=== PATIENT | female | born 2000 | race Caucasian/White ===

== ENCOUNTER 2021-05-30 15:33 | Emergency (ER) | payer OTHER, SELFPAY ==
[2021-05-30 15:39] VITALS: BP 126/90; PULSE 102; RESP 16; TEMP 36.7; O2SAT 100
--- NOTE | 2021-05-30 15:59 | ED.URI ---
HPI - URI/Sore Throat General Chief Complaint: Upper Respiratory Infection Stated Complaint: sore throat Source: patient and RN notes reviewed Mode of arrival: ambulatory History of Present Illness HPI Narrative: This is a 20-year-old female presented to urgent care with complaints of a sore throat and a cough with yellowish mucus that she has had for the last 3 days. She does note that she has a history of sinusitis. Patient has been taking ibuprofen and DayQuil for her symptoms with no relief. The patient denies SOB, CP, palpitation, extremity numbness, lightheadedness, dizziness, nasal congestion, sinus pains, or runny nose, constipation, diarrhea, chills, or fever. Related Data Home Medications Medication Instructions Recorded Confirmed bupropion HCl [Wellbutrin XL] 300 mg PO 05/30/21 divalproex PO 05/30/21 norethindrone-e.estradiol-iron tablet 05/30/21 [Aurovela Fe 1-20 (28)] Allergies Allergy/AdvReac Type Severity Reaction Status Date / Time lamotrigine Allergy Rash Verified 05/30/21 15:48 Review of Systems Review of Systems: A 14 organ system Review of Systems was performed and pertinent positives included in the HPI, otherwise remaining ROS is negative. Exam Narrative: GENERAL: This is a well-nourished, well-developed patient, in no apparent distress. HEAD: normocephalic, atraumatic. EYES: PERRL. Sclera clear/white. Vision is grossly intact. EARS: External ears normal, auditory canals clear and without drainage, TMs normal without perforation. Hearing grossly intact. NOSE: External nose normal with no obvious nasal discharge, nares without redness, no rhinorrhea. THROAT: Mucous membranes moist, posterior pharynx edema with erythematous in multiple ulcers. NECK: Neck supple, non-tender without lymphadenopathy, masses or thyromegaly. CARDIOVASCULAR: Regular rate and rhythm without murmurs, gallops, or rubs. RESPIRATORY: Clear to auscultation. Breath sounds equal bilaterally. No wheezes, rales, or rhonchi. GASTROINTESTINAL: Abdomen soft, non-tender, nondistended. Bowel sounds are active. No hepato-splenomegaly, or palpable masses. No guarding. SKIN: warm, intact with no suspicious lesions or rash, good texture and turgor. NEURO: awake, alert, and oriented to person, place and time. There were no obvious focal neurologic abnormalities. Steady gait EXTREMITIES: Normal range of motion. No edema. No calf tenderness. Negative Homans sign bilaterally. BACK: Nontender without deformity or crepitance. No flank tenderness. Course Course Emergency Course: Patient will be treated for symptoms along for pharyngitis strep was negative she will be given Augmentin XR twice daily x7 days and Magic wash Vital Signs Vital signs: Vital Signs Temperature 98.1 F 05/30/21 15:39 Pulse Rate 102 H 05/30/21 15:39 Respiratory Rate 16 05/30/21 15:39 Blood Pressure 126/90 05/30/21 15:39 Pulse Oximetry 100 05/30/21 15:39 Temperature 98.1 F 05/30/21 15:39 Pulse Rate 102 H 05/30/21 15:39 Respiratory Rate 16 05/30/21 15:39 Blood Pressure 126/90 05/30/21 15:39 Pulse Oximetry 100 05/30/21 15:39 MDM - URI/Sore Throat Differential Diagnosis Differential diagnosis: Likely upper respiratory infection, influenza, pharyngitis and other (Strep) Lab Data Attestation: I reviewed the patient's lab results. Labs: Strep Screen Presumptive Negative *(Reference Range: Negative)* Discharge Plan Discharge Clinical Impression: Pharyngitis Qualifiers: Pharyngitis/tonsillitis etiology: unspecified etiology Qualified Code(s): J02.9 - Acute pharyngitis, unspecified Patient Disposition: Home, Self-Care Condition: Stable Instructions: Antibiotic Form, Pharyngitis (ED) Additional Instructions: -Eat things that are easy to swallow, like tea or soup, or popsicles to suck on. -Oral rinses such as: Salt water gargles and/or may use topical anesthetic
== END 2021-05-30 16:02 | disposition home or self-care (01) ==
PROVIDERS: Emergency Provider Nurse Practitioner
DX: J02.9 Acute pharyngitis, unspecified (principal)
CPT/HCPCS: 87081; 87880; 99203; G0463

== ENCOUNTER 2021-08-07 10:47 | Emergency (ER) | payer OTHER, SELFPAY ==
[2021-08-07 11:14] VITALS: BP 109/61; PULSE 121; RESP 16; TEMP 37.7; O2SAT 100
--- NOTE | 2021-08-07 12:25 | ED.GENADULT ---
HPI - General Adult General Chief complaint: Urogenital-Female Stated complaint: Std Source: patient Mode of arrival: ambulatory Limitations: no limitations History of Present Illness HPI narrative: Patient presents requesting an STI evaluation. She indicates that 3 days ago she noticed some bumps to her labia. No hx of similar symptoms in past. No hx of STI in past. She has some chronic clear vaginal discharge, unchanged from chronic discharge. Denies any vaginal bleeding. No fever, chills, nausea, vomiting, abdominal pain. She is not sure when her last period was. She is compliant with OC. She is sexually active with men and women. She uses condoms some of the time. She does not believe any of her sex partners are symptomatic. No additional complaints or concerns. Related Data Home Medications Medication Instructions Recorded Confirmed bupropion HCl 300 mg PO DAILY 08/07/21 08/07/21 divalproex 1,000 mg PO DAILY 08/07/21 08/07/21 norethindrone-e.estradiol-iron 1 tablet PO DAILY 08/07/21 08/07/21 [Blisovi Fe 06/24 (28)] Allergies Allergy/AdvReac Type Severity Reaction Status Date / Time lamotrigine Allergy Rash Verified 08/07/21 11:17 Review of Systems Review of Systems: CONSTITUTIONAL: Denies fever, chills, or sweats. EYES: Denies visual changes, redness, or discharge. ENT: Denies rhinorrhea, congestion, sore throat, or otalgia. CARDIOVASCULAR: Denies chest pain, palpitations, or edema. RESPIRATORY: Denies cough or dyspnea. GASTROINTESTINAL: Denies abdominal pain, nausea, vomiting, or diarrhea. GENITOURINARY: Reports clear vaginal discharge, unchanged from chronic discharge. Denies dysuria or hematuria. SKIN: Reports bumps to labia. Denies rash or itching. MUSCULOSKELETAL: Denies back pain, joint pain, or myalgia. NEUROLOGIC: Denies headache, numbness, dizziness, or weakness. PSYCHIATRIC: Denies anxiety or depression. REPLACED BY [facility] Past Medical History Medical History (Updated 08/07/21 @ 13:29 by Rajan Haile, BOAZ, JASWANT) Bipolar 2 disorder Depression Surgical History Surgical History History of bunionectomy Family History Family History Mother Family history non-contributory Social History Social History Smoking status: Current every day smoker Alcohol intake: current Alcohol use details: social Substance use: current Substance use type: marijuana Living arrangements: with family Gender identity (if verbalized by the patient): Female Sexual Orientation (if Verbalized by the Patient): Bisexual Spiritual care concerns: No Exam Narrative: GENERAL: Well-appearing, well-nourished, and in no acute distress. HEAD: Normocephalic, atraumatic. EYES: PERRLA and EOMI. ENT: Nares clear, no rhinorrhea or epistaxis. Mucous membranes moist. Oropharynx without tonsillar hypertrophy exudate or other lesions. Bilateral TMs pearly jaeger nonbulging NECK: Supple. No adenopathy or masses. No carotid bruits or JVD CHEST: Clear to auscultation. No respiratory distress. No wheezes rales or rhonchi HEART: Regular rate and rhythm. No murmur heard. Normal peripheral pulses. ABDOMEN: Soft, nontender, nondistended, normal active bowel sounds. EXTREMITIES: Normal range of motion. No edema. SKIN: Warm, dry, no rash. GENITAL: There are multiple vesicular lesions to the external labia. There is a thick white/yellow/green drainage and vaginal vault NEURO: No focal deficits. Alert and oriented x3. PSYCH: Normal mood and affect. Course Course Emergency Course: This is a 20-year-old female who presented with complaints of bumps to her labia. On physical exam her consistent with herpes simplex. She does have discharge which could be related to that. I did offer to treat her empirically for other STI's, which she decl
--- NOTE | 2021-08-07 16:04 | PC.NURSE ---
1300 pelvic exam completed by provider.
== END 2021-08-07 13:38 | disposition home or self-care (01) ==
PROVIDERS: Emergency Provider Nurse Practitioner
DX: B00.9 Herpesviral infection, unspecified (principal); F17.200 Nicotine dependence, unspecified, uncomplicated; F32.A Depression, unspecified
CPT/HCPCS: 81003; 81025; 87086; 87255; 87491; 87591; 87661; 99214; G0463

== ENCOUNTER 2021-10-15 11:21 | Emergency (ER) | payer OTHER, SELFPAY ==
--- NOTE | ~2021-10-15 | XR_ITS ---
XR soft tissue neck DATE: 10/15/2021 11:44 INDICATION: Swollen tonsils TECHNIQUE: AP and lateral views COMPARISON: None FINDINGS: Normal size and shape of the epiglottis. The lingual tonsils appear moderately prominent. T here is minimal prominence of the adenoids. No prevertebral soft tissue swelling or emphysema. The tracheal air column appears normal. Normal alignment of the cervical spine. Minimal levoscoliosis of the cervical and upper thoracic spin e. IMPRESSION: Moderate prominence of the lingual tonsils, minimal prominence of the adenoids Normal epiglottis Reviewed, dictated and finalized at location B. IMPRESSION: Moderate prominence of the lingual tonsils, minimal prominence of t he adenoids Normal epiglottis
--- NOTE | 2021-10-15 11:31 | ED.URI ---
HPI - URI/Sore Throat General Chief Complaint: Upper Respiratory Infection Stated Complaint: SORE THROAT Time Seen by Provider: 10/15/21 11:31 Source: patient and RN notes reviewed Mode of arrival: ambulatory Limitations: no limitations History of Present Illness HPI Narrative: 20-year-old female presented for complaint of sore throat, onset 4 days. Endorses right ear pain with clear drainage since yesterday, intermittent subjective fever. She started amoxicillin and viscous lidocaine yesterday after a telehealth visit. States she cannot tolerate the viscous lidocaine. She states she gets strep infections approximately 3 times per year, usually rapid test is negative but she has positive cultures. She has not followed with an ENT. She denies nausea, vomiting, cough, shortness of breath or wheezing. Taking Tylenol and ibuprofen as needed. MD elicited complaint: sore throat Related Data Home Medications Medication Instructions Recorded Confirmed norethindrone-e.estradiol-iron 1 tablet PO DAILY 08/07/21 08/07/21 [Blisovi Fe 06/24 ()] amoxicillin 10/15/21 lidocaine HCl [Lidocaine Viscous] 10/15/21 Allergies Allergy/AdvReac Type Severity Reaction Status Date / Time lamotrigine Allergy Rash Verified 08/07/21 11:17 Review of Systems Review of Systems: CONSTITUTIONAL: denies malaise, chills, sweats, fever EYES: Denies visual changes, redness, or discharge ENT: denies rhinorrhea, congestion, sinus pain, otalgia CARDIOVASCULAR: Denies chest pain, palpitations, edema RESPIRATORY: Denies dyspnea, cough, post nasal drainage GASTROINTESTINAL: Denies abdominal pain, nausea, vomiting, diarrhea SKIN: Denies rash or itching MUSCULOSKELETAL: denies myalgia NEUROLOGIC: Denies headache [facility] Past Medical History Medical History Bipolar 2 disorder Depression Surgical History Surgical History History of bunionectomy Family History Family History Mother Family history non-contributory Social History Social History Smoking status: Current every day smoker Alcohol intake: current Alcohol use details: social Substance use: current Substance use type: marijuana Gender identity (if verbalized by the patient): Female Sexual Orientation (if Verbalized by the Patient): Bisexual Spiritual care concerns: No Exam Narrative: GENERAL: Ill-appearing, nontoxic, appears in pain when talking HEAD: Normocephalic EYES: conjunctivae clear ENT: Mucous membranes moist. TMs pearly jaeger with normal light reflex bilaterally; no tragal tenderness. Oropharynx erythematous with multiple white patches R>L; no drooling, no hoarseness, no trismus, uvula midline. No tripod positioning, muffled voice, soft palate or pharyngeal wall bulging NECK: Supple. Nontender anterior cervical lymphadenopathy CHEST: Clear to auscultation, breath sounds equal. No wheezing, rhonchi, rales, or stridor. No respiratory distress, speaks in full sentences. HEART: Regular rate and rhythm. No murmur heard. SKIN: Warm, dry, no rash. NEURO: Alert and oriented x3. PSYCH: Normal mood and affect Course Course Emergency Course: Patient is aware of diagnosis, understands and agrees to treatment plan. Anticipatory guidance given. Patient agrees to follow-up as directed and is aware of reasons to seek care at the emergency department. Portions of this record may have been created with voice recognition software Level of Care: Express Care Visit Vital Signs Vital signs: Vital Signs Temperature 97.2 F L 10/15/21 11:33 Pulse Rate 114 H 10/15/21 11:33 Respiratory Rate 16 10/15/21 11:33 Blood Pressure 140/75 10/15/21 11:33 Pulse Oximetry 100 10/15/21 11:33 Temperature 97.2 F L 10/15/21 11:33 Pulse Rate
[2021-10-15 11:33] VITALS: BP 140/75; PULSE 114; RESP 16; TEMP 36.2; O2SAT 100
== END 2021-10-15 12:06 | disposition home or self-care (01) ==
PROVIDERS: Emergency Provider Nurse Practitioner Family
DX: J03.90 Acute tonsillitis, unspecified (principal); F17.200 Nicotine dependence, unspecified, uncomplicated
CPT/HCPCS: 70360; 87081; 87880; 99213; G0463

== ENCOUNTER 2021-12-22 12:02 | Emergency (ER) | payer OTHER, SELFPAY ==
--- NOTE | 2021-12-22 12:04 | ED.URI ---
HPI - URI/Sore Throat General Chief Complaint: Upper Respiratory Infection Stated Complaint: SORE THROAT Time Seen by Provider: 12/22/21 12:04 Source: patient Mode of arrival: ambulatory Limitations: no limitations History of Present Illness HPI Narrative: Sierra is a 21-year-old female patient presenting to the clinic today with complaints of a sore throat x3 days. She reports she has felt feverish. She denies any rash or nausea. No known exposure to anybody with COVID, flu, or strep. MD elicited complaint: sore throat and nasal congestion Related Data Home Medications Medication Instructions Recorded Confirmed bupropion HCl 100 mg tablet mg PO 12/22/21 Allergies Allergy/AdvReac Type Severity Reaction Status Date / Time lamotrigine Allergy Rash Verified 12/22/21 09:36 Review of Systems Review of Systems: Pertinent positives per HPI. Patient denies any rash, headache, visual changes, dizziness, cough, runny nose, shortness of breath, chest pain, palpitations, nausea, vomiting, diarrhea, constipation, abdominal pain, or any urinary issues. [facility] Past Medical History Medical History Bipolar 2 disorder Depression Irregular periods Surgical History Surgical History History of bunionectomy History of endoscopy (~09/03/20) Family History Family History Mother Family history non-contributory Social History Social History Smoking status: Former smoker Smoking end date: 12/07/21 Alcohol intake: current Drinks per week: 6 Alcohol use details: social Substance use: current Substance use type: marijuana Other substance usage details: daily Additional living arrangements comments: single Additional occupation/education comments: group therapist Gender identity (if verbalized by the patient): Female Sexual Orientation (if Verbalized by the Patient): Bisexual Spiritual care concerns: No Comments At the time of my signature, I reviewed and agree with the nursing past medical, surgical, social, and family history. There is no relevant family history pertinent to the patient complaint. Exam Narrative: General: Well-developed, well nourished, in no apparent distress Head: Normocephalic, atraumatic Eyes: Pupils equally round and reactive to light bilaterally, EOM intact, sclera and conjunctive clear, no discharge, lids normal Ears: TMs intact and clear, ear canals clear, no drainage, grossly hearing normal. Nose: Nares patent, no discharge, no inflammation, no sinus tenderness. Mouth: Oropharynx without lesions or masses, good dentition, MMM. Mild tonsillar enlargement, oropharynx red, white exudate noted to the left tonsil. Neck: Supple, trachea midline, mild enlargement of anterior cervical nodes, no thyroid masses or goiter palpable. Cardio: Regular rate and rhythm, s1 and s2 normal, no murmur appreciated. Resp: Clear to auscultation bilaterally anteriorly and posteriorly, no rhonchi, rales, wheezing or rubs Course Course Emergency Course: Portions of this record may have been created with voice recognition software. Level of Care: Express Care Visit Vital Signs Vital signs: Vital signs reviewed MDM - URI/Sore Throat MDM Narrative Medical decision making narrative: At the time of visit patient is resting comfortably on the exam table. Strep screen was obtained and was negative in the clinic. I suspect the patient has viral exudative pharyngitis and will send throat swab for culture. I will send her in a prescription for some viscous lidocaine to help control the pain as well supportive measures were discussed. Patient voiced understanding of discharge instructions but patient is upset because she did not get an antibiotic
[2021-12-22 12:07] VITALS: BP 109/66; PULSE 105; RESP 16; TEMP 37; O2SAT 99
== END 2021-12-22 12:35 | disposition home or self-care (01) ==
PROVIDERS: Emergency Provider Nurse Practitioner Family
DX: J02.9 Acute pharyngitis, unspecified (principal); Z87.891 Personal history of nicotine dependence; F32.A Depression, unspecified
CPT/HCPCS: 87081; 87880; 99213; G0463